=== PATIENT | female | born 1995 | race Caucasian/White ===

== ENCOUNTER → 2017-03-16 | Outpatient (CLI) | payer BC ==
--- NOTE | 2017-03-17 17:12 | MR ---
EXAMINATION TYPE: MR knee RT wo con DATE OF EXAM: 03/16/2017 1:24 PM COMPARISON: Prior MR right knee 16 June 2015 HISTORY: RT. knee pain TECHNIQUE: Multiplanar, multisequence imaging of the right knee is performed without IV contrast. FINDINGS: MEDIAL MENISCUS: Anterior and posterior horns are intact without tear. Some minimal increased signal present in the posterior horn of the medial meniscus as on prior exam may represent mucoid degenerati on LATERAL MENISCUS: Anterior and posterior horns are intact without tear. CRUCIATE LIGAMENTS: The anterior and posterior cruciate ligaments are intact and unremarkable. COLLATERAL LIGAMENTS: The medial collateral ligament and lateral collateral ligament complex are inta ct and unremarkable. EXTENSOR MECHANISM: Visualized quadriceps and patellar tendons are intact. EFFUSION: No significant suprapatellar joint effusion. POPLITEAL CYST: No popliteal/stewart cyst. TRICOMPARTMENT SPACES: Maintained CARTILAGE: Intact and stable BONE MARROW SIGNAL: Normal OTHER: The cystic focus seen posterior to the posterior horn of the medial meniscus is stable.. IMPRESSION: Stable exam, no significant interval change, no abnormality evident to account for patient's symptoms .
== END | disposition home or self-care (01) ==
LOC: RADMRIMAIN 12:58
PROVIDERS: ATTEND Family Medicine
DX: M25.561 Pain in right knee (principal)

== ENCOUNTER → 2019-10-16 | Day surgery (SDC) | payer BC, MEDICAID ==
[2019-10-14 10:11] VITALS: BMI 24.1
[2019-10-14 14:43] LABS: Basophils % (A) 0 %; Eosinophils # (A) 0.1 k/uL (0-0.7); Eosinophils % (A) 2 %; HGB 13.6 gm/dL (11.4-16.0); Lymphocytes # (A) 1.4 k/uL (1.0-4.8); Lymphocytes % (A) 24 %; MCH 27.9 pg (25.0-35.0); MCHC 33.3 g/dL (31.0-37.0); MCV 83.8 fL (80.0-100.0); Mean Platelet Volume 6.5; Monocytes # (A) 0.4 k/uL (0-1.0); Monocytes % (A) 7 %; Neutrophils # (A) 3.8 k/uL (1.3-7.7); Neutrophils % (A) 64 %; Platelet Count 361 k/uL (150-450); RBC 4.89 m/uL (3.80-5.40); RDW 13.1 % (11.5-15.5); WBC 5.9 k/uL (3.8-10.6)
--- NOTE | 2019-10-15 14:10 | HP ---
HISTORY AND PHYSICAL CHIEF COMPLAINT: Right knee pain. 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 She notes intermittent pain, particularly with squatting. She has anterior and medial pain along with giving way. She has been taking anti-inflammatories in addition has had a previous injection with only partial temporary relief. She notes the pain limits her normal function and activities. She has a history of a right knee arthroscopy in 2015 that actually increased her symptoms. PAST MEDICAL HISTORY: Negative. PAST SURGICAL HISTORY: Significant for right knee arthroscopy, laparoscopy, and section. CURRENT MEDICATION: Ibuprofen. She has allergies to PENICILLIN and SULFA. FAMILY HISTORY: Negative. SOCIAL HISTORY: Negative for current tobacco or alcohol use. 16 POINT REVIEW OF SYSTEMS: Otherwise reviewed and is noncontributory. PHYSICAL EXAMINATION: On examination, the patient is approximately 5 foot 5, 114 pounds of mesomorphic habitus. HEENT: Exam is nonfocal. NECK: Supple. She has painless passive motion of the right hip. Straight leg raise is negative. Active motion right knee -6 to 140 degrees of flexion. She is tender about the lateral and medial patellar facet along with medial joint line, greater than lateral joint line. She has no effusion. Collaterals are stable, Ariana is negative, Chelo's is equivocal. She has pain with patellofemoral compression. Her distal neurovascular exam appears intact in the right lower extremity. MRI report right knee 06/03/2019 shows evidence of fat pad edema. IMPRESSION: 1. 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 2. History of right knee arthroscopy. RECOMMENDATION: I talked to the patient at length regarding her condition along with treatment options. At this point, she remains quite symptomatic despite extensive conservative measures. After thorough discussion, she opts to proceed with surgery. We will plan to proceed with arthroscopic evaluation with possible fat pad resection/synovectomy. We will likely perform that as an outpatient procedure. Risks and benefits were discussed at length in layman's terms. MMODL / IJN: [id number] /
[~2019-10-16] MED LIST: DEXAMETHASONE SOD PHOSPHATE 10 MG/ML 1 ML VIAL IV ONE; HYDROcodone/APAP 5-325MG 1 EACH TAB PO ONE; KETOROLAC 30 MG/ML 1 ML VIAL IVP ONE; LACTATED RINGERS 1,000 ML IV SCH; LIDOCAINE 1% 20 ML VIAL (10MG/ML) FOR IV START INTRADERMA PRN; LIDOCAINE 1% INJ 10MG/ML (20 ML MDV) ONE; MIDAZOLAM 2 MG/2 ML VIAL IV PRN; MIDAZOLAM 2 MG/2 ML VIAL ONE; ONDANSETRON 4 MG/2 ML VIAL IVP ONE; PROPOFOL 10 MG/ML 20 ML VIAL IV ONE; SCOPOLAMINE 1.5MG/72HR PATCH TRANSDERM ONE; fentaNYL (PF) 50 MCG/ML 2 ML AMP ONE
--- NOTE | 2019-10-16 10:42 | P.OP ---
Date of Procedure: 10/16/19 Preoperative Diagnosis: Right knee internal derangement Postoperative Diagnosis: Synovitis right knee with fat pad hypertrophy, posterior lateral meniscal tear Procedure(s) Performed: Right knee arthroscopic partial lateral meniscectomy/partial synovectomy of the medial, lateral, patellofemoral compartment along with partial fat pad resection Anesthesia: BRODERICK Surgeon: Ulysses Lieberman Estimated Blood Loss (ml): 10 Pathology: none sent Condition: stable Disposition: PACU Indications for Procedure: The patient's a 24-year-old female presents with persistent/progressive right knee pain despite extensive conservative treatment. A discussion of the risks and benefits of operative intervention versus continued conservative measures was made with patient. She opted to proceed. Operative risks to include infection, neurovascular injury, development of blood clots, possible incomplete resolution of symptoms, possible worsening symptoms and need for subsequent procedures was discussed. Informed consent was obtained. Operative Findings: As below Description of Procedure: The patient was brought to the operating room, and after induction of general anesthesia examined the right knee. Collaterals were stable, Ariana was negative, and posterior drawer was negative. The right lower extremity was prepped and draped in a normal fashion. A lateral portal was made through a 5 mm vertical skin incision lateral to the patella tendon above the joint line. Diagnostic arthroscopy was performed. On inspection of the medial compartment, significant synovitis involving to medial compartment was noted and debrided b ack to stable base with a motorized shaver. The meniscus was stable and intact. On inspection of the notch, the anterior cruciate ligament appeared to be intact. On inspection of the lateral compartment, a small flap tear involving the posterior most aspect of the lateral meniscus in the white-white junction was noted. This was debrided back to stable base with a motorized shaver. The remaining lateral meniscus was stable and intact. The cartilage surface was intact. Reactive synovitis involving anterolateral compartment was debrided with a motorized shaver. On inspection of the patellofemoral articulation, significant synovitis and fat pad had to remove hypertrophy was noted. This was debrided back to stable base with a motorized shaver. No significant chondral injury involving the patellofemoral articulation was noted. The gutters were clear debris. The knee was then thoroughly irrigated. The portals were closed with Steri-Strips. A sterile dressing was applied in addition to a compression stocking. The patient was awoken from general anesthesia and transferred to recovery room in good condition. Blood loss was estimated at 10 mL. No complications were incurred.
[2019-10-16 10:51] VITALS: TEMP 96.8
[2019-10-16] MEDS: HYDROmorphone 0.5 MG/0.5 ML SYRINGE IVP PRN ×4 (10:53→11:26)
[2019-10-16 11:50] VITALS: BP 122/78; PULSE 65; RESP 16
== END | disposition home or self-care (01) ==
LOC: OR 08:47
PROVIDERS: ATTEND Orthopaedic Surgery
DX: M23.251 Derangement of posterior horn of lateral meniscus due to old tear or injury, right knee (principal); M65.861 Other synovitis and tenosynovitis, right lower leg; M79.4 Hypertrophy of (infrapatellar) fat pad; Z88.0 Allergy status to penicillin; Z88.2 Allergy status to sulfonamides; Z79.1 Long term (current) use of non-steroidal anti-inflammatories (NSAID)
CPT/HCPCS: 81025 ×2; 85025; 29881; J2250; J1100; J2405; J0690; J2001; J3010; J1885; J2704; J1170

== ENCOUNTER 2021-06-26 11:57 | Emergency (ER) | payer BC, MEDICAID ==
[2021-06-26 12:17] VITALS: RESP 18
[2021-06-26] MEDS ORDERED: IBUPROFEN 600 MG TAB PO STA (13:03)
--- NOTE | 2021-06-26 13:40 | USB ---
Reason for exam: clinical finding. US Breast Limited LT Left limited breast ultrasound including focal area of concern, retroareolar and axilla demonstrates no cystic or solid lesion seen. Scanned 8-10 o'clock. No hyperemia. No abscess. Mild scattered ectatic ducts. ASSESSMENT: Benign, BI-RAD 2 RECOMMENDATION: Clinical management of the left breast. Manage on a clinical basis with regard to patient's breast pain. If a palpable area develops, the area can be rescanned.
--- NOTE | 2021-06-26 13:40 | ED ---
Fever HPI - General Chief Complaint: Fever Stated Complaint: Muscle pain, Fever & breast pain Time Seen by Provider: 06/26/21 12:27 Source: patient, RN notes reviewed Mode of arrival: ambulatory Limitations: no limitations - History of Present Illness Initial Comments: This is a 26-year-old female presents emergency Department chief complaint of left breast pain, swelling. Patient states she's had this on and off symptoms last several months. She is currently breast-feeding. Patient states this first on the pain is not resolved. Patient states that she also woke up with fever. Denies any significant skin changes noted denies any URI symptoms no cough or cold like symptoms no dysuria no abdominal complaints. - Related Data Home Medications Medication Instructions Recorded Confirmed Etonogestrel [Nexplanon] 68 mg SQ ONCE 06/26/21 06/26/21 Previous Rx's Medication Instructions Recorded Cephalexin [Keflex] 500 mg PO Q6HR #40 cap 06/26/21 Allergies Allergy/AdvReac Type Severity Reaction Status Date / Time Sulfa (Sulfonamide Allergy Rash/Hives Verified 06/26/21 14:35 Antibiotics) Penicillins AdvReac Rash/Hives Verified 06/26/21 14:35 Review of Systems ROS Statement: Those systems with pertinent positive or pertinent negative responses have been documented in the HPI. ROS Other: All systems not noted in ROS Statement are negative. 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 History of Any Multi-Drug Resistant Organisms: None Reported Past Surgical History: Section, Orthopedic Surgery, Tonsillectomy Additional Past Surgical History / Comment(s): arthroscopy right knee, cervical biopsy, LEEP procedure Past Anesthesia/Blood Transfusion Reactions: No Reported Reaction Past Psychological History: No Psychological Hx Reported Smoking Status: Never smoker Past Alcohol Use History: Occasional Past Drug Use History: None Reported - Past Family History Mother Family Medical History: Blood Disorder Additional Family Medical History / Comment(s): MTHFR gene General Exam Limitations: no limitations General appearance: alert, in no apparent distress Head exam: Present: atraumatic, normocephalic, normal inspection Eye exam: Present: normal appearance, PERRL, EOMI. Absent: scleral icterus, conjunctival injection, periorbital swelling ENT exam: Present: normal exam, normal oropharynx, mucous membranes moist Neck exam: Present: normal inspection, full ROM. Absent: tenderness, meningismus, lymphadenopathy Respiratory exam: Present: normal lung sounds bilaterally. Absent: respiratory distress, wheezes, rales, rhonchi, stridor Cardiovascular Exam: Present: regular rate, normal rhythm, normal heart sounds. Absent: systolic murmur, diastolic murmur, rubs, gallop, clicks Skin exam: Present: other (Left breast there is moderate swelling, tenderness with no erythema to the skin noted) Course Vital Signs 06/26/21 06/26/21 06/26/21 12:12 12:26 14:23 Temperature 100.3 F H 100.7 F H Pulse Rate 118 H 105 H Respiratory 18 18 18 Rate Blood Pressure 108/60 106/65 O2 Sat by Pulse 98 97 Oximetry 06/26/21 15:43 Temperature 98.8 F Pulse Rate 103 H Respiratory 18 Rate Blood Pressure 102/65 O2 Sat by Pulse 98 Oximetry Medical Decision Making - Medical Decision Making Patient presented for left breast pain, fever, body aches. Patient has humerus tenderness. Patient placed on oral antibiotics, discuss warm compresses, multiple feeding and pumping. Return parameters were discussed. - Lab Data Lab Results 06/26/21 Range/Units 14:27 Coronavirus (PCR) Not Detected (Not Detectd) Disposition Clinical Impression: Mastitis, left, acute Disposition: HOME SELF-CARE Condition: Stable Instructions (If sedation given, give patient instructions): Mastitis (ED) Additional Instructions: Please return to the Emergency Department if symptoms worsen or any other concerns. Prescriptions: Cephalexin [Keflex] 500 mg PO Q6HR #40 cap Is patient prescribed a controlled substance at d/c from ED?: No Referrals: Joshua Mariano DO [Primary Care Provider] - 1-2 days Time of Disposition: 15:54
[2021-06-26 15:44] VITALS: BP 102/65; PULSE 103; TEMP 98.8
== END 2021-06-26 15:58 | disposition home or self-care (01) ==
LOC: EC 11:57
DX: N61.0 Mastitis without abscess (principal); M79.10 Myalgia, unspecified site; Z88.0 Allergy status to penicillin; Z88.2 Allergy status to sulfonamides; Z20.822 Contact with and (suspected) exposure to COVID-19
CPT/HCPCS: 87635; 99284

== ENCOUNTER → 2021-12-14 | Outpatient (CLI) | payer BC ==
[2021-12-14 19:35] LABS: Basophils # (A) 0.02 X 10*3/uL (0.00-0.10); Basophils % (A) 0.4 %; Eosinophils # (A) 0.07 X 10*3/uL (0.04-0.35); Eosinophils % (A) 1.4 %; HCT 40.1 % (37.2-46.3); HGB 12.8 g/dL (12.0-15.0); Lymphocytes % (A) 27.3 %; MCHC 31.9 g/dL (32.0-37.0); MCV 84.6 fL (80.0-97.0); Mean Platelet Volume 10.2 fL (9.5-12.2); Monocytes # (A) 0.42 X 10*3/uL (0.20-1.00); Monocytes % (A) 8.2 %; Neutrophils # (A) 3.21 X 10*3/uL (1.80-7.70); Neutrophils % (A) 62.5 %; Platelet Count 291 X 10*3/uL (140-440); RBC 4.74 X 10*6/uL (4.10-5.20); RDW 12.9 % (11.5-14.5); WBC 5.13 X 10*3/uL (4.50-10.00)
== END | disposition home or self-care (01) ==
LOC: LABPAT 12:05
PROVIDERS: ATTEND Obstetrics & Gynecology
DX: Z01.812 Encounter for preprocedural laboratory examination (principal)
CPT/HCPCS: 36415; 85025

== ENCOUNTER 2021-12-21 06:20 | Day surgery (SDC) | payer BC ==
[2021-12-18 16:15] VITALS: BMI 23.3
--- NOTE | 2021-12-20 16:52 | P.HPOB ---
History of Present Illness H&P Date: 12/20/21 Chief Complaint: Family planning, dyspareunia This is a 26 y.o. female, 3, para 2, who presents for laparoscopic bilateral tubal ligation via fulgaration and Nexplanon removal along with possible ablation of endometriosis, possible lysis of adhesions, or possible jamshid inage of ovarian cyst. She is currently using Nexplanon and has alot of cramping with it. She has pain with intercourse ever since her section at first intermittently, but now more constant. Pelvic ultrasound was normal. OB Hx: . History of 1 delivery and 1 vaginal after . She also has a history of 1 miscarriage. 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 Review of Systems Constitutional: Denies chills, Denies fever Eyes: denies blurred vision, denies pain Ears, nose, mouth and throat: Denies headache, Denies sore throat Cardiovascular: Denies chest pain, Denies shortness of breath Respiratory: Denies cough Gastrointestinal: Denies abdominal pain, Denies diarrhea, Denies nausea, Denies vomiting Genitourinary: Reports dysmenorrhea, Reports dyspareunia Menstruation: Reports menses variable Musculoskeletal: Denies myalgias Integumentary: Denies pruritus, Denies rash Neurological: Denies numbness, Denies weakness Psychiatric: Denies anxiety, Denies depression Endocrine: Denies fatigue, Denies weight change Hematologic/Lymphatic: Reports easy bruising 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; History of anemia History of Any Multi-Drug Resistant Organisms: None Reported Past Surgical History: Section, Orthopedic Surgery, Tonsillectomy Additional Past Surgical History / Comment(s): arthroscopy right knee, cervical biopsy, LEEP procedure; Laparoscopy, ovarian cystectomy-2018 Past Anesthesia/Blood Transfusion Reactions: No Reported Reaction Past Psychological History: No Psychological Hx Reported Smoking Status: Never smoker Past Alcohol Use History: Occasional Past Drug Use History: None Reported - Past Family History Mother Family Medical History: Blood Disorder Additional Family Medical History / Comment(s): MTHFR gene Medications and Allergies Home Medications Medication Instructions Recorded Confirmed Type No Known Home Medications 12/18/21 12/18/21 History Allergies Allergy/AdvReac Type Severity Reaction Status Date / Time Penicillins Allergy Rash/Hives Verified 12/18/21 16:08 Sulfa (Sulfonamide Allergy Rash/Hives Verified 12/18/21 16:08 Antibiotics) Exam Osteopathic Statement: *. No significant issues noted on an osteopathic structural exam other than those noted in the History and Physical/Consult. HEENT: within normal limits Heart: regular rate and rhythm Lungs: clear to auscultation bilaterally Abdomen: soft, non-tender Pelvic: uterus small, anteverted, slightly tender. No adnexal masses palpated, but mild tenderness bilaterally Extremities: neg. Glenn's Assessment and Plan (1) Family planning Current Visit: No Status: Acute Code(s): Z30.09 - ENCOUNTER FOR OTH GENERAL CNSL AND ADVICE ON CONTRACEPTION SNOMED Code(s): 076056234 (2) Dyspareunia Current Visit: No Status: Acute Code(s): TJD7664 - SNOMED Code(s): 77268803 Plan: Will proceed with laparoscopic bilateral tubal ligation via fulgaration with removal of Nexplanon implant and possible ablation of endometriosis, possible lysis of adhesions, or possible drainage of ovarian cyst. I have discussed the risks, benefits, and alternative therapies for the above- mentioned procedure and for both sedation/anesthesia as well as necessary blood products administration, if indicated, as they pertain to this patient. The patient has indicated her understanding and acceptance of the risks and procedures discussed.
[~2021-12-21 06:20] MED LIST changes: -DEXAMETHASONE SOD PHOSPHATE 10 MG/ML 1 ML VIAL IV ONE; +DEXAMETHASONE SOD PHOSPHATE 4 MG/ML 1 ML VIAL IV ONE; -HYDROcodone/APAP 5-325MG 1 EACH TAB PO ONE; -KETOROLAC 30 MG/ML 1 ML VIAL IVP ONE; +LIDOCAINE 1% (10MG/ML) FOR IV START INTRADERMA PRN; -LIDOCAINE 1% 20 ML VIAL (10MG/ML) FOR IV START INTRADERMA PRN; -LIDOCAINE 1% INJ 10MG/ML (20 ML MDV) ONE; -MIDAZOLAM 2 MG/2 ML VIAL IV PRN; -MIDAZOLAM 2 MG/2 ML VIAL ONE; -PROPOFOL 10 MG/ML 20 ML VIAL IV ONE; +Pre Op ABX Message 1 EACH MISC MISCELLANE ONE; -fentaNYL (PF) 50 MCG/ML 2 ML AMP ONE
[2021-12-21] MEDS ORDERED: HYDROmorphone 0.5 MG/0.5 ML SYRINGE IVP PRN (07:00)
[2021-12-21] MEDS ORDERED: PROPOFOL 10 MG/ML 20 ML VIAL IV ONE (07:26)
[2021-12-21] MEDS ORDERED: GLYCOPYRROLATE 0.2 MG/ML 2 ML VIAL ONE (07:26)
[2021-12-21] MEDS ORDERED: NALOXONE 0.4 MG/ML 1 ML VIAL ONE (07:26)
[2021-12-21] MEDS ORDERED: fentaNYL (PF) 50 MCG/ML 2 ML AMP ONE (07:26)
[2021-12-21] MEDS ORDERED: SUCCINYLCHOLINE CHLORIDE 100 MG/5 ML SYR IV ONE (07:26)
[2021-12-21] MEDS ORDERED: KETOROLAC 15 MG/ML 1 ML VIAL ONE (07:26)
[2021-12-21] MEDS ORDERED: MIDAZOLAM 2 MG/2 ML VIAL ONE (07:26)
[2021-12-21] MEDS ORDERED: LIDOCAINE 1% INJ 10MG/ML (20 ML MDV) ONE (07:26)
[2021-12-21] MEDS ORDERED: NEOSTIGMINE 1 MG/ML 10 ML VIAL ONE (07:26)
[2021-12-21] MEDS ORDERED: ROCURONIUM 10 MG/ML (5 ML VIAL) IV ONE (07:26)
[2021-12-21] MEDS ORDERED: BUPIVACAINE (PF) 0.25% 30 ML VIAL SQ ONE ×2 (07:55→08:07)
[2021-12-21 08:35] VITALS: TEMP 97.2
--- NOTE | 2021-12-21 08:43 | P.OP ---
Date of Procedure: 12/21/21 Preoperative Diagnosis: Family planning Dyspareunia Postoperative Diagnosis: Same Procedure(s) Performed: Laparoscopic bilateral tubal ligation via fulguration Removal of Nexplanon implant from right arm Anesthesia: BRODERICK Surgeon: Merlyn Castanon Estimated Blood Loss (ml): 10 Pathology: none sent Condition: stable Disposition: same day Indications for Procedure: This is a 26 y.o. female, 3, para 2, who presents for laparoscopic bilateral tubal ligation via fulgaration and Nexplanon removal along with possible ablation of endometriosis, possible lysis of adhesions, or possible drainage of ovarian cyst. She is currently using Nexplanon and has alot of cramping with it. She has pain with intercourse ever since her section at first intermittently, but now more constant. Pelvic ultrasound was normal. Operative Findings: Uterus is anteverted and small. Both tubes appeared normal. Her left ovary does have a small follicle cyst that appears functional and a couple paratubal cysts on the left tube. Appendix is visualized and appears normal. Gallbladder edge appears normal. No evidence of endometriosis or adhesions are noted. Uterus is sounded to 8 cm. Description of Procedure: The patient is taken to the operating room where she is placed in the dorsal lithotomy position. She is prepped and draped in the normal sterile fashion. Examination is performed under anesthesia. Uterus is found to be in a anteverted position. No adnexal masses were palpated. Next a bivalve speculum was placed in the patient's vagina. A ring forcep was used to grasp the anterior lip of the cervix. The uterus was sounded to 8 cm. The kroner uterine manipulator was then inserted through the cervix and the balloon was inflated. The ring forcep is removed speculum was removed gloves were changed and atte ntion was turned to the abdomen. A small stab incision was made with a scalpel in the infraumbilical fold. A 5 mm disposable bladeless trocar was then inserted into the peritoneal cavity under direct visualization lifting the lower abdomen as the trocar was inserted. Once inside, pneumoperitoneum was achieved with CO2 gas. The insert was removed and the camera was placed. Intraperitoneal placement was confirmed. No bleeding was noted. Next the patient was placed in Trendelenburg position. A small stab incision was made suprapubically and a 5 mm disposable bladeless trocar was inserted into the peritoneal cavity under direct visualization. Once inside pelvic contents were inspected. The above-noted findings were made and pictures were taken. Next a bipolar Kleppinger instrument was placed through the inferior trocar and the midportion of each tube was brought away from other structures and completely fulgurated on approximate 2-3 cm segment of each tube. Excellent hemostasis was noted. Pneumoperitoneum was released after the inferior trocar was removed under direct visualization. The upper trocar was then removed. The skin incisions were then closed with 4-0 Vicryl suture in a subcuticular fashion. Incisions were then injected with quarter percent Marcaine. Approximately 7 mL were used. Next attention was turned to her right arm where her Nexplanon insert had been previously placed. The insert was palpated in the skin after placing Betadine over her arm. A small cut was made with a 15 blade after injecting uterus approximately 2 mL of quarter percent Marcaine underneath the end of the Nexplanon implant. The implant was brought up to the incision and the scalpel was used to dissect away connective tissue around the implant. A second small cut was made with a 15 blade just proximal to the previous cut since I was unable to bring the implant up to the first incision. Once I made this cut was able to bring the implant to the skin and remove the connective tissue with the scalpel and then the implant easily popped out of the incision and was grasped with a hemostat and removed. The arm was then cleaned with a moist sponge, Steri-Strips were placed and then a bandage was placed. Next the kroner uterine manipulator was removed. Minimal bleeding was noted. All sponge and needle counts are correct. The patient is then taken to recovery room in stable condition.
[2021-12-21 10:12] VITALS: RESP 16
[2021-12-21 10:39] VITALS: BP 110/73; PULSE 68
== END 2021-12-21 10:50 | disposition home or self-care (01) ==
LOC: OR 06:20
PROVIDERS: ATTEND Obstetrics & Gynecology
DX: Z30.2 Encounter for sterilization (principal); N94.10 Unspecified dyspareunia; E72.12 Methylenetetrahydrofolate reductase deficiency; Z98.891 History of uterine scar from previous surgery; Z98.890 Other specified postprocedural states; Z97.2 Presence of dental prosthetic device (complete) (partial); Z88.0 Allergy status to penicillin; Z88.2 Allergy status to sulfonamides
CPT/HCPCS: 81025; 58670; 11983; J2250; J1100; J2310; J2710; J2405; J2001; J3010; J1885; J0330; J2704; J1170

== ENCOUNTER → 2022-11-02 | Outpatient (CLI) | payer BC | END | disposition home or self-care (01) | LOC: LABMAIN 19:45 | PROVIDERS: ATTEND Emergency Medicine | DX: Z20.822 Contact with and (suspected) exposure to COVID-19 (principal) | CPT/HCPCS: 87636 ==